=== PATIENT | female | born 1975 | race Caucasian/White ===

== ENCOUNTER → 2017-01-05 | Day surgery (SDC) | payer OTHER, SELFPAY | END | disposition home or self-care (01) | LOC: SDC 11:28 | DX: K81.1 Chronic cholecystitis (principal); K82.8 Other specified diseases of gallbladder; Z79.899 Other long term (current) drug therapy; Z90.89 Acquired absence of other organs; Z87.19 Personal history of other diseases of the digestive system; Z86.010 Personal history of colon polyps; E07.9 Disorder of thyroid, unspecified; G43.909 Migraine, unspecified, not intractable, without status migrainosus | CPT/HCPCS: C1894; J1885; J2704; J2765; Q9967 ==